=== PATIENT | female | born 2005 | race Caucasian/White ===

== ENCOUNTER 2025-01-31 07:15 | Outpatient (REF) | payer BC, SELFPAY ==
--- NOTE | ~2025-01-31 | US_ITS ---
EXAMINATION: US PELVIS CLINICAL INFORMATION: Missing intrauterine device strings. COMPARISON: None available. TECHNIQUE: Ultrasound of the pelvis is performed using both transabdominal and transvaginal transducers along with Doppler. Transvaginal imaging is performed due to inadequate visualization transabdominally. FINDINGS: Uterus: The uterus is anteversion flexion and measures 6 x 3 x 4 cm. There is an intrauterine contraceptive device in the uterine cavity. The cervix appears normal. The double wall endometrial thickness is no elevated secondary to the contraceptive device.. The uterus is smooth in contour and has normal myometrial echogenicity. No visible fibroid. Adnexa: Both ovaries are visualized. There is normal color flow to the adnexa. There is no ovarian torsion. There is no pelvic ascites or fluid collection. Right ovary measures 4 x 2 x 2 cm. Volume: 6 cc. No gross solid or cystic lesion. Scattered follicles the largest measures 1.7 cm. Left ovary measures 2 x 2 x 1 cm. Volume: 3 cc. No solid or cystic lesion. US/US pelvic and transvaginal IMPRESSION: Intrauterine contraceptive device in place. No ovarian torsion. 1.7 cm dominant follicle, right ovary. Electronically signed by: Ned Berrios MD 01/31/2025 11:33 AM EST
--- OUTSIDE RECORDS SUMMARY | 2025-01-31 07:19 | XMS_ITS | Encounter Summary ---
Author Organization [facility] Address [address] [place] [address] Care Team Providers Care Production Team Advisor Name Role Phone Katheryn Becerra MD Primary Care Provider [phone] Encounter Details Date Type Department Care Team (Late st Contact Info) Description 01/16/[address] [facility] Family Medicine [address] [place] [address] Katheryn Becerra MD [address] [place] [address] [phone] Social History Tobacco Use Types Packs/Day Years Used Date Smoking Tobacco: Never Smokeless Tobacco: Never Alcohol Use Standard Drinks/Week Comments No 0 (1 standard drink = 0.6 oz pur e alcohol) [facility] Utilities Answer Date Recorded In the past 12 months has th e electric, gas, oil, or water company threatened to shut off services in your home? No 07/11/2024 Hunger Vital Sign Answer Date Recorded Within the past 12 months, y ou worried that your food would run out before you got the money to buy more. Never true 07/11/20 24 Within the past 12 months, t he food you bought just didn't last and you didn't have money to get more. Never true 07/11/2024 Transportation Answer Date Recorded In the past 12 months, has l ack of reliable transportation kept you from medical appointments, meetings, work or from getting things needed for daily living? No 07/11/2024 Housing Answer Date Recorded Housing Risk Low 2 07/11/2024 Housing Risk Medium Not on file 07/11/2024 Housing Risk High Not on file 07/11/2024 What is your living situation today? LSSTEADY 07/11/2024 Comments No Sex and Gender Information Value Date Recorded Sex Assigned at Female 06/18/2024 9:37 AM EDT Legal Sex Female 5:53 PM EDT Gender Identity Not on file Sexual Orientation Not on file documented as of this encounter Miscellaneous Notes * Telephone Encounter - Michelle Ventura - 01/16/2025 3:31 PM EST Error documented in this encounter Plan of Treatment Upcoming Encounters Date Type Department Care Team (Late st Contact Info) Description 03/08/2025 2:30 PM EDT Appointment [address], 5th [place] [address] 08/09/2025 11:00 AM EDT Office Visit [facility] Family Medicine [address] [place] [phone] Katheryn Becerra MD [address] [place] [phone] documented as of this encounter Visit Diagnoses Not on filedocumented in this encounter Care Teams Production Team Advisor Relationship Specialty Start Date End Date Katheryn Becerra MD [address] [place] [phone] PCP - General Family Medicine 07/16/19 documented as of this encounter
--- OUTSIDE RECORDS SUMMARY | 2025-01-31 07:19 | XMS_ITS | Encounter Summary ---
Author Organization [facility] Address [address] [place] [address] Care Team Providers Care Card Maker Name Role Phone Pamella Jones MD Primary Care Provider Unavail able Unknown Pcp, Non [facility] Primary Care Provider Unava ilable Encounter Details Date Type Department Care Team (Late st Contact Info) Description 11/29/2018 Orders Only [facility] [address] [place] [address] Pamella Jones MD Social History Tobacco Use Types Packs/Day Years Used Date Smoking Tobacco: Never Smokeless Tobacco: Never Comments Unknown Sex and Gender Information Value Date Recorded Sex Assigned at Not on file Legal Sex Female 8:14 AM EST Gender Identity Not on file Sexual Orientation Not on file documented as of this encounter Plan of Treatment Not on file documented as of this encounter Procedures * Due to [place] state law, this organization might not be sharing negative HIV tests. Procedure Name Priority Date/Time Associated Diagnosis Comments OPTIC NERVE DECOMPRESSION Routine 2018 12:17 PM EST Drusen (degenerative) of macula, bilateral documented in this encounter Visit Diagnoses Diagnosis Drusen (degenerative) of macula, bilateral- Primary documented in this encounter Care Teams Card Maker Relationship Specialty Start Date End Date Pamella Jones MD PCP - General Pediatrics 04/20/18 04/17/19 Unknown Pcp, Non [facility] PCP - General 06/07/19 documented as of this encounter
--- OUTSIDE RECORDS SUMMARY | 2025-01-31 07:19 | XMS_ITS | Referral Summary ---
Author Organization [facility] Address [address] [place] [address] Care Team Providers Care Aircraft Structural Repairer Name Role Phone Katheryn Becerra MD Primary Care Provider [phone] Encounters Date Type Department Care Team Description 01/21/2025 2:30 PM EST Office Visit [address] [phone] Katheryn Becerra MD Breast lump on right side at 7 o'clock position (Primary Dx) 01/16/[address] [phone] Katheryn Becerra MD 01/15/[address] [phone] Katheryn Becerra MD from Last 3 Months Allergies Active Allergy Reactions Criticality Noted Date Comments Amoxicillin Unknown 05/08/2018 Penicillins Hives 12/08/2017 Medications albuterol (PROAIR HFA,VENTOLIN HFA) 90 mcg inhaler Inhale 2 puffs (180 mcg total) by mouth every 6 hours as needed for wheezing or shortness of breath. Use with spacer. 8.5 g 07/22/2023 6:00 PM EDT 3 Active fluticasone propionate (FLONASE) 50 mcg/actuation nasal spray SHAKE LIQUID AND USE 2 SPRAYS IN EACH NOSTRIL EVERY DAY 16 g 4 Active ISOtretinoin (Accutane) 40 mg capsule Take 60 mg by mouth once a day. 60 mg daily Active Active Problems Problem Noted Date Diagnosed Date Acne 07/12/2024 Immunizations Immunization Administration Dates Next Due Covid-19 Monovalent Vaccine, Moderna, mRNA, PF 12/04/2021,04/15/2021,03/20/2021 Diphtheria, Tetanus Toxoids and Acellular Pertussis Vaccine 08/08/2008,07/28/2005,07/03/2004,04/23,02/24/2004 Haemophilus Influenzae Type B Vaccine, Conjugate Unspecified Formulation 04/08/2005,07/03/2004,04/23/2004,02/23 Hepatitis A Vaccine, Unspeci fied Formulation 07/10/2018 Hepatitis B Vaccine, Unspeci fied Formulation 10/12/2004,07/03/2004,2003 Human Papillomavirus 9-Valent Vaccine 07/22/2023 ,07/02/2021,07/23/2020 Influenza Virus Vaccine, Uns pecified Formulation 08/17/2017 Measles, Mumps, and Rubella Vaccine 08/08/2008,0 04/08/2005 Meningococcal Polysaccharide (Groups A, C, Y and W-135) Diphtheria Toxoid Conjugate Vaccine (MCV4P) 07/23/2020 Meningococcal, MCV4, Unspeci fied Conjugate Formulation(Groups A, C, Y and W-135) 08/18/2016 Pneumococcal Conjugate Vacci ne, 7 Valent 07/03/2004,04/23/2004,02/24/2004 Poliovirus Vaccine, Unspecif ied Formulation 08/08/2008,07/28/2005,04/23/2004,02/23 Tetanus Toxoid, Reduced Diph theria Toxoid, and Acellular Pertussis Vaccine, Adsorbed 08/07/2015 Varicella Virus Vaccine 08/08/2008,01/07/2005 Social History Tobacco Use Types Packs/Day Years Used Date Smoking Tobacco: Never Smokeless Tobacco: Never Tobacco Cessation:Counseling Given: Not Answered Alcohol Use Standard Drinks/Week Comments No 0 (1 standard drink = 0.6 oz pur e alcohol) [facility] Utilities Answer Date Recorded In the past 12 months has e [employer], [employer], oil, or water [employer] threatened to shut off services in your [...] on file Sexual Orientation Not on file Last Filed Vital Signs Vital Sign Reading Time Taken Comments Blood Pressure 115/68 01/21/2025 2:36 PM EST Pulse 68 01/21/2025 2:36 PM EST Temperature 35.7 ??C (96.2 ??F) 07/11/2024 1:57 PM ED T Respiratory Rate 16 12/08/2017 6:00 PM EST Oxygen Saturation 99% 01/21/2025 2:36 PM EST Inhaled Oxygen Concentration - - Weight 59.4 kg (131 lb) 01/21/2025 2:36 PM EST Height 165.1 cm (5' 5 ) 07/11/2024 1:57 PM EDT Body Mass Index 21.8 07/11/2024 1:57 PM EDT Plan of Treatment Upcoming Encounters Date Type Department Care Team (Late st Contact Info) Description 03/08/2025 2:30 PM EDT Appointment [facility] Building Mammography [address] [facility], 5th [place] [address] 08/09/2025 11:00 AM EDT Office Visit [facility] Family Medicine [address] [place] [phone] Katheryn Becerra MD [address] [place] [phone] Procedures * Due to [place] state law, this organization might not be sharing negative HIV tests. Procedure Name Priority Date/Time Associated Diagnosis Comments HEPATITIS C ANTIBODY W/REFLEX TO HCV RNA, QUANTITATIVE PCR Routine 07/11/2024 3:13 PM EDT Routine general medical examination at a health care facility CHLAMYDIA/NEISSERIA GONORRHEA RNA Routine 07/11/2024 3:13 PM EDT Routine general medical examination at a health care facility from Last 3 Months or Most Recently Relevant to Health Maintenance Results * Due to [place] law, this organization might not be sharing negative HIV tests. * Chlamydia/Neisseria gonorrhoeae RNA (07/11/2024 3:13 PM EDT) Chlamydia trachomatis RNA, TMA NOT DETECTED NOT DETECTED 07/12/2024 9:46 AM EDT [employer] [facility] Neisseria Gonorrhoeae RNA, TMA NOT DETECTED NOT DETECTED 07/12/2024 9:46 AM EDT [employer] [facility] Comment: The analytical performance characteristics of this assay, when used to test SurePath(TM) specimens have been determined by [employer]. The modifications have not been cleared or approved by the FDA. This assay has been validated pursuant to the CLIA regulations and is used for clinical purposes. For additional information, please refer to https://education.[employer]/faq/RXG925 (This link is being provided for information/ educational purposes only.) Urine Voided urine specimen / Unknown 07/11/2024 3:13 PM EDT 07/12/2024 2:46 AM EDT us Katheryn Becerra MD LAB URINE ORDERABLES Final Res ult [facility] [address] [place] [address] 3rd Floor, [place] [address], [facility] [address] [address] * Hepatitis C Antibody w/Reflex to HCV RNA, Quantitative PCR (07/11/2024 3:13 PM EDT) Hepatitis C Antibody NON-REACT HARSHAL NON-REACT HARSHAL 07/12/2024 12:38 AM EDT [employer] Comment: HCV antibody was non-reactive. There is no laboratory evidence of HCV infection. In most cases, no further action is required. However, if recent HCV exposure is suspected, a test for HCV RNA (test code 40677) is suggested. For additional information please refer to http://education.[employer].us/faq/OQU20v2 (This link is being provided for informational/ educational purposes only.) Blood Structure of peripheral vein / Unknown 07/11/2024 3:13 PM EDT 07/11/2024 10:21 PM EDT us Katheryn Becerra MD LAB BLOOD ORDERABLES Final Res ult [facility] [address] [facility] 3rd Floor, [place] [address], [employer] [facility] [address] [place] [address] from Last 3 Months or Most Recently Relevant to Health Maintenance Insurance [facility] HMO/POS [facility] HMO/POS Care Teams Aircraft Structural Repairer Relationship Specialty Start Date End Date Katheryn Becerra MD [address] [place] [phone] PCP - General Family Medicine 07/16/19
--- OUTSIDE RECORDS SUMMARY | 2025-01-31 07:19 | XMS_ITS | Encounter Summary ---
Author Organization [facility] Address [address] [place] [address] Care Team Providers Care Medical Instrument Cable Fabricator Name Role Phone Katheryn Miguel MD Primary Care Provider [phone] Reason for Referral * Physical Therapy (Routine) - Pending Review Specialty Diagnoses / Procedures Referred By Hermilo ibrahim Referred To Contact Physical Therapy Diagnoses Acute back pain, unspecified back location, unspecified back pain laterality Katheryn Miguel MD [address] [place] [address] Phone: tel: fax: Referral ID Status Reason Start Date Expiration Date Visits Requested Visits Authorized [id number] Pending Review Specialty Services Required 01/23/2025 07/25/2026 6 6 Encounter Details Date Type Department Care Team (Late st Contact Info) Description 01/15/2025 Telephone [facility] Family Medicine [address] [place] [address] Katheryn Miguel MD [address] [place] [address] Social History Tobacco Use Types Packs/Day Years Used Date Smoking Tobacco: Never Smokeless Tobacco: Never Alcohol Use Standard Drinks/Week Comments No 0 (1 standard drink = 0.6 oz pur e alcohol) [facility] Utilities Answer Date Recorded In the past 12 months has e electric, gas, oil, or water company [...] encounter Miscellaneous Notes * Telephone Encounter - Catalina Mcdonnell - 01/30/2025 3:29 PM EST Faxed to fax number provided * Addendum Note - Katheryn Miguel MD - 01/23/2025 10:09 AM ESTAddended by: KATHERYN MIGUEL on: 01/23/2025 10:09 AM Modules accepted: Orders * Telephone Encounter - Katheryn Miguel MD - 01/23/2025 10:09 AM EST Done please send * Telephone Encounter - Shanna Ayala [place] - 01/16/2025 1:11 PM EST REFERRAL REQUEST BY PATIENT What specialty is the referral for? Back pain What provider are you seeing? [facility] location? [address] [place] [address] [address], [place] [address] Phone number to provider: [phone] Fax number to provider: [phone] What diagnosis or symptom is the referral to treat? Back pain Pt aware PCP will be back next week and can wait for her return. * Telephone Encounter - Michelle Hopeo - 01/16/2025 11:12 AM EST Carla was seen at the clinic of [facility] 01/11/25 for back pain, they gave her a physical therapy referral but she needs an order from her pcp. Please advise. documented in this encounter Plan of Treatment Upcoming Encounters Date Type Department Care Team (Late st Contact Info) Description 03/08/2025 2:30 PM EDT Appointment [address], 5th [place] [address] 08/09/2025 11:00 AM EDT Office Visit [facility] Family Medicine [address] [place] [phone] Katheryn Miguel MD [address] [place] [phone] Scheduled Referrals Name Type Priority Associated Diagnoses Orde r Schedule Ambulatory referral to Physical Therapy Outpatient Referral Routine Acute back pain, unspecified back location, unspecified back pain laterality Expected: 01/23/2025, Expires: 07/23/2025 documented as of this encounter Visit Diagnoses Diagnosis Acute back pain, unspecified back location, unspecified back pain laterality- Primary documented in this encounter Care Teams Medical Instrument Cable Fabricator Relationship Specialty Start Date End Date Katheryn Miguel MD [address] [place] [phone] PCP - General Family Medicine 07/16/19 documented as of this encounter
--- OUTSIDE RECORDS SUMMARY | 2025-01-31 07:19 | XMS_ITS | Clinical Summary ---
Author Organization [facility] Address [address] [place] [address] Care Team Providers Care Rn Medicare Name Role Phone Katheryn Becerra MD Primary Care Provider [phone] Allergies Active Allergy Reactions Criticality Noted Date [...] Problem Noted Date Diagnosed Date Acne 07/12/2024 Encounters Date Type Department Care Team Description 01/21/2025 2:30 PM EST Office Visit [address] [phone] Katheryn Becerra MD Breast lump on right side at 7 o'clock position (Primary Dx) 01/16/[address] [phone] Katheryn Becerra MD 01/15/[address] [phone] Katheryn Becerra MD from Last 3 Months Immunizations Immunization Administration Dates Next Due Covid-19 Monovalent Vaccine, ModernaTasha, PF 12/04/2021,04/15/2021,03/20/2021 Diphtheria, Tetanus Toxoids and Acellular [...] drink = 0.6 oz pur e alcohol) [facility] Utilities Answer Date Recorded In the past 12 months has e [employer], gas, oil, or water [employer] threatened to shut off services in your [...] Info) Description 03/08/2025 2:30 PM EDT Appointment [facility] Building Mammography [address] [facility], 5th [place] [address] 08/09/2025 11:00 AM EDT Office Visit [facility] Family Medicine [address] [place] [phone] Katheryn Becerra MD [address] [place] [phone] Health Maintenance Due Date Last Done Comments Pap Smear 2003 1 Week [facility] 2003 1 Month [facility] 01/11/2004 2 Month [facility] 02/11/2004 4 Month [facility] 04/19/2004 6 Month [facility] 06/18/2004 9 Month [facility] 09/16/2004 12 Month [facility] 2004 15 Month [facility] 03/15/2005 18 Month [facility] 06/13/2005 24 Month [facility] 12/10/2005 30 Month [facility] 04/15/2006 COVID-19 Vaccine ( season) 2024 12/04/2021, 04/15/2021, 03/20/2021 Influenza Vaccine (#1) 2024 08/17/2017, 2016 Alcohol/Substance Use Screening 11/28/2024 Social Drivers of Health Annual Screening 11/28/2024 Chlamydia Screening 07/11/2025 07/11/2024 3 to 21 Year [facility] 07/12/2025 07/11/2024 Well Child Check 07/12/2025 DTaP,Tdap,and Td Vaccines (7 - Td or Tdap) 08/07/2025 08/07/2015, 08/08/2008, 07/28/2005, Additional history exists Depression Screening and Follow-Up 01/21/2026 01/21/2025 RSV Vaccine (60+ years old and patients) (1 - 1-dose 75+ series) 2078 Pneumococcal Vaccine: Pediatric (0-5 Years) and At-Risk Patients (6-50 Years) Aged Out 07/03/2004, 04/23/2004, 02/24/2004 No longer eligible based on patient's age to complete this topic Hepatitis B Vaccines Completed 10/12/2004, 07/03/2004, 2003 MMR Vaccines Completed 08/08/2008, 04/08/2005 Varicella Vaccines Completed 08/08/2008, 01/07/2005 Meningococcal Vaccine Completed 07/23/2020, 016 HPV Vaccines Completed 07/22/2023, 0803/2021, 07/23/2020 HIV Screening Completed 07/11/2024 Hepatitis C Screening Completed 07/11/2024 Procedures * Due to [facility] law, this organization might not be sharing [...] to Health Maintenance Results * Due to [place] [employer] law, this organization might not be sharing negative HIV tests. * Chlamydia/Neisseria gonorrhoeae RNA (07/11/2024 3:13 PM EDT) Chlamydia trachomatis RNA, TMA NOT DETECTED NOT DETECTED 07/12/2024 9:46 AM EDT [employer] [facility] Neisseria Gonorrhoeae RNA, TMA NOT DETECTED NOT DETECTED 07/12/2024 9:46 AM EDT [employer] [facility] Comment: The analytical performance characteristics of this assay, when used to test SurePath(TM) specimens have been determined by [employer]. The modifications have not been cleared or approved by the FDA. This assay has been validated pursuant to the CLIA regulations and is used for clinical purposes. For additional information, please refer to https://education.[employer]/faq/ITS247 (This link is being provided for information/ educational purposes only.) Urine Voided urine specimen / Unknown 07/11/2024 3:13 PM EDT 07/12/2024 2:46 AM EDT us Katheryn Becerra MD LAB URINE ORDERABLES Final Res ult [facility] [address] [facility] 3rd Floor, [place] [address], [employer] [facility] [address] [place] [address] * Hepatitis C Antibody w/Reflex to HCV RNA, Quantitative PCR (07/11/2024 3:13 PM EDT) Hepatitis C Antibody NON-REACT HARSHAL NON-REACT HARSHAL 07/12/2024 12:38 AM EDT [id number] Comment: HCV antibody was non-reactive. There is no laboratory evidence of HCV infection. In most cases, no further action is required. However, if recent HCV exposure is suspected, a test for HCV RNA (test code 18877) is suggested. For additional information please refer to http://Better Place.[employer]/faq/KFN14y2 (This link is being provided for informational/ educational purposes only.) Blood Structure of peripheral vein / Unknown 07/11/2024 3:13 PM EDT 07/11/2024 10:21 PM EDT us Katheryn Becerra MD LAB BLOOD ORDERABLES Final Res ult [facility] [address] [facility] 3rd Floor, [place] [address], [employer] [facility] [address] [place] [address] from Last 3 Months or Most Recently Relevant to Health Maintenance Insurance [facility] HMO/POS [facility] HMO/POS Care Teams Rn Medicare Relationship Specialty Start Date End Date Katheryn Becerra MD [address] [place] [address] [phone] PCP - General Family Medicine 07/16/19
--- OUTSIDE RECORDS SUMMARY | 2025-01-31 07:19 | XMS_ITS | Encounter Summary ---
Author Organization [facility] Address [address] [place] [address] Care Team Providers Care Marketing Designer Name Role Phone Katheryn Becerra MD Primary Care Provider [phone] Reason for Referral * Diagnostic Imaging (Routine) - Authorized Specialty Diagnoses / Procedures Referred By Hermilo ibrahim Referred To Contact Diagnoses Breast lump on right side at 7 o'clock position Procedures US Bilateral Breast Limited Katheryn Becerra MD [address] [place] [phone] Phone: tel: fax: Referral ID Status Reason Start Date Expiration Date V isits Requested Visits Authorized [id number] Authorized 01/21/2025 07/23/2026 1 1 Reason for Visit * Reason Comments Breast Mass R side lump 2 months ago .. Tender to the touch... Encounter Details Date Type Department Care Team (Late st Contact Info) Description 01/21/2025 2:30 PM EST Office Visit [facility] [address] [place] [address] [phone] Katheryn Becerra MD [address] [place] [address] [phone] Breast lump on right side at 7 o'clock position (Primary Dx) Social History Tobacco Use Types Packs/Day Years Used Date Smoking Tobacco: Never Smokeless Tobacco: Never Alcohol Use Standard Drinks/Week Comments No 0 (1 standard drink = 0.6 oz pur e alcohol) [facility] Utilities Answer Date Recorded In the past 12 months has th e electric, gas, oil, or water [employer] threatened to shut off services in your [...] on file documented as of this encounter Last Filed Vital Signs Vital Sign Reading Time Taken Comments Blood Pressure 115/68 01/21/2025 2:36 PM EST Pulse 68 01/21/2025 2:36 PM EST Temperature - - Respiratory Rate - - Oxygen Saturation 99% 01/21/2025 2:36 PM EST Inhaled Oxygen Concentration - - Weight 59.4 kg (131 lb) 01/21/2025 2:36 PM EST Height - - Body Mass Index 21.8 07/11/2024 1:57 PM EDT documented in this encounter Progress Notes * Katheryn Becerra MD - 01/21/2025 2:56 PM EST Subjective Chief Complaint Patient presents with Breast Mass R side lump 2 months ago .. Tender to the touch... The provider would like to use a new technology product that will automatically document your encounter based on a recording of your conversation today. This will allow them to spend more time focused on you. Is it okay with you if we record your conversation? Patient consents to be recorded by [employer] system. Carla Vishal PeckPardo is a 19 y.o. female History of Present Illness The patient presents for evaluation of a lump in her right breast. She reports overall good health, with the exception of a palpable mass in her right breast, first noticed approximately 2 months ago. The mass is occasionally tender and sore. She is currently using an intrauterine device (IUD) for contraception and has only experienced one menstrual cycle since its insertion 3 months prior, making it difficult to ascertain any correlation between the tenderness and her menstrual cycle. She consumes caffeine sparingly. She does not smoke cigarettes, alcohol, orrecreational drugs. She reports no family history of breast cancer. An ultrasound of the same breast was performed in June 2024, revealing a lymph node in a different position. Doing well at school otherwise. Breathing issues okay. Participating in [facility] activities without issue. Patient Active Problem List Diagnosis Date Noted Acne 07/12/2024 No past medical history on file. No past surgical history on file. No family history on file. Social Documentation Youngest of 3 Lives with mom and dad in [place] Graduated high school 2021, going to [employer] to study political science/public policy [employer] No tobacco/etoh/drugs Current Outpatient Medications: albuterol (PROAIR HFA,VENTOLIN HFA) 90 mcg inhaler, Inhale 2 puffs (180 mcg total) by mouth every 6hours as needed for wheezing or shortness of breath. Use with spacer., Disp: 8.5 g, Rfl: 0 fluticasone propionate (FLONASE) 50 mcg/actuation nasal spray, SHAKE LIQUID AND USE 2 SPRAYS IN EACH NOSTRIL EVERY DAY, Disp: 16 g, Rfl: 0 ISOtretinoin (Accutane) 40 mg capsule, Take 60 mg by mouth once a day. 60 mg daily, Disp: , Rfl: Objective Vitals: 01/21/25 1436 BP: 115/68 BP Location: Right arm Patient Position: Sitting Pulse: 68 SpO2: 99% Weight: 59.4 kg (131 lb) BP Readings from Last 3 Encounters: 01/21/25 115/68 07/11/24 107/70 06/18/24 105/66 Wt Readings from Last 3 Encounters: 01/21/25 59.4 kg (131 lb) 07/11/24 57.6 kg (127 lb) 06/18/24 58.5 kg (129 lb) Physical Exam no apparent distress Right breast with pea sized nodule at 7-8 oclock, lower outer quadrant, the previous lymph node at 5 oc lock is less notieable Her left breast is more diffusely lumpy,cystic, inverted nipple, unsure if it is chronic. Assessment & Plan Assessment & Plan Right breast lump. The etiology of the lump could be attributed to a cyst or fibroadenoma, both of which are benign conditions commonly seen in young women. Given the duration of the lump's presence and the associated discomfort, further investigation is warranted. It is important to note that the likelihood of malignancy at her age is low, although not impossible. A bilateral breast ultrasound will be ordered to establish a baseline for future comparisons. If any abnormalities are detected, appropriate steps will be taken. Next visit 08/09 Call or return to clinic prn if these symptoms worsen or fail to improve as anticipated. Katheryn Becerra MD documented in this encounter Plan of Treatment Upcoming Encounters Date Type Department Care Team (Late st Contact Info) Description 03/08/2025 2:30 PM EDT Appointment [facility]ography [address] [place] [address], 5th [place] [address] 08/09/2025 11:00 AM EDT Office Visit [facility] [address] [place] [phone] Katheryn Becerra MD [address] [place] [phone] Scheduled Orders Name Type Priority Associated Diagnoses Orde r Schedule US Bilateral Breast Limited Imaging Routine Breast lump on right side at 7 o'clock position Expected: 01/21/2025, Expires: 03/21/2026 documented as of this encounter Visit Diagnoses Diagnosis Breast lump on right side at 7 o'clock position- Primary Lump or mass in breast documented in this encounter Care Teams Marketing Designer Relationship Specialty Start Date End Date Katherny Becerra MD [address] [place] [phone] PCP - General Family Medicine 07/16/19 documented as of this encounter
== END 2025-01-31 07:16 | disposition home or self-care (01) ==
LOC: HO.UMASIMG 07:15
PROVIDERS: Visit Provider Nurse Practitioner Women's Health
DX: N94.10 Unspecified dyspareunia (principal); Z30.431 Encounter for routine checking of intrauterine contraceptive device
CPT/HCPCS: 76830; 76856

== ENCOUNTER → 2025-01-31 10:40 | Outpatient (BNV) | payer BC, SELFPAY | PROVIDERS: Visit Provider Radiology Diagnostic Radiology | DX: T83.39XA Other mechanical complication of intrauterine contraceptive device, initial encounter (principal) | CPT/HCPCS: 76830; 76856 ==